=== PATIENT | female | born 1985 | race Caucasian/White ===

== ENCOUNTER 2022-10-10 20:34 | Emergency (ER) | payer OTHER ==
[~2022-10-10] VITALS: Ht 172.7 cm; Wt 110.5 kg
[2022-10-10 20:35] VITALS: BP 141/85; TEMP 97.8; O2SAT 100
[2022-10-10 21:29] LABS: APPEARANCE, URINE HAZY (CLEAR); BACTERIA, URINE AUTO 1+ (NEGATIVE); BILIRUBIN, URINE AUTO NEGATIVE (NEGATIVE); BLOOD, URINE BLOOD 1+ (NEGATIVE); COLOR, URINE AMBER (YELLOW); GLUCOSE, URINE (UA) AUTO NEGATIVE (NEGATIVE); KETONE, URINE AUTO NEGATIVE (NEGATIVE); LEUKOCYTE ESTERASE, URINE AUTO 1+ (NEGATIVE); MUCUS, URINE SMALL (NEGATIVE); NITRITE, URINE AUTO NEGATIVE (NEGATIVE); PROTEIN, URINE AUTO NEGATIVE (NEGATIVE); RBC, URINE AUTO 8 /HPF (0-3); SPECIFIC GRAVITY URINE AUTO 1.012 (1.002-1.035); SQUAMOUS EPITHELIAL CELL UR AU 1 /HPF (0-6); WBC, URINE AUTO 15 /HPF (0-3)
[2022-10-10 22:46] LABS: BASO # 0.1 10^3/uL (0.0-0.2); BASO % 0.6 % (0.0-1.0); EOS # 0.3 10^3/uL (0.0-0.5); EOS % 2.7 % (0.0-3.0); HEMATOCRIT 40.3 % (36.0-47.0); HEMOGLOBIN 13.2 g/dl (12.0-15.5); LYMPH # 2.6 10^3/uL (1.5-5.0); LYMPH % 23.6 % (24.0-44.0); MEAN CORPUSCULAR HEMOGLOBIN 28.4 pg (27.0-33.0); MEAN CORPUSCULAR HGB CONC 32.8 g/dl (32.0-36.5); MEAN CORPUSCULAR VOLUME 86.7 fl (80.0-96.0); MONO # 0.7 10^3/uL (0.0-0.8); MONO % 5.9 % (2.0-8.0); NEUTROPHILS # 7.4 10^3/uL (1.5-8.5); NEUTROPHILS % 66.9 % (36.0-66.0); PLATELET COUNT, AUTOMATED 378 10^3/uL (150-450); RED BLOOD COUNT 4.65 10^6/uL (4.00-5.40); WHITE BLOOD COUNT 11.1 10^3/uL (4.0-10.0)
[2022-10-10 23:06] LABS: BLOOD UREA NITROGEN 9 MG/DL (9-23); CALCIUM LEVEL 9.5 MG/DL (8.5-10.1); CARBON DIOXIDE LEVEL 29 MMOL/L (20-31); CHLORIDE LEVEL 102 MMOL/L (98-107); CREATININE FOR GFR 0.73 MG/DL (0.55-1.30); GLOMERULAR FILTRATION RATE > 60.0 (>60); GLUCOSE, FASTING 87 MG/DL (60-100); POTASSIUM SERUM 4.3 MMOL/L (3.5-5.1); SODIUM LEVEL 137 MMOL/L (136-145)
[2022-10-11] MEDS ORDERED: CIPROFLOXACIN 500MG TABLET PO ONE (01:35)
[2022-10-11] MEDS ORDERED: PHENAZOPYRIDINE 100 MG TAB PO ONE (01:35)
[2022-10-11] MEDS ORDERED: CIPR-249 PO (01:36)
[2022-10-11] MEDS ORDERED: PYRI1TAB5 PO (01:36)
== END 2022-10-11 01:47 | disposition home or self-care (01) ==
LOC: M ED 20:34
DX: N39.0 Urinary tract infection, site not specified (principal); D72.829 Elevated white blood cell count, unspecified; Z79.2 Long term (current) use of antibiotics; Z79.899 Other long term (current) drug therapy

== ENCOUNTER 2024-06-12 18:25 | Emergency (ER) | payer OTHER ==
[~2024-06-12] VITALS: Ht 172.7 cm; Wt 108.5 kg
[~2024-06-12 18:25] MED LIST: CIPR-249 PO; PYRI1TAB5 PO
[2024-06-12 18:27] VITALS: BP 132/66; TEMP 97.8; O2SAT 98
[2024-06-12] MEDS ORDERED: PHEN-239 (18:33)
[2024-06-12] MEDS ORDERED: METF-838 (18:33)
[2024-06-12] MEDS ORDERED: BUPR150T12 (18:33)
[2024-06-12] MEDS ORDERED: FLUO40CA (18:33)
[2024-06-12] MEDS ORDERED: IBUP-1022 PO (20:23)
== END 2024-06-12 20:34 | disposition home or self-care (01) ==
LOC: M ED 18:25
DX: S93.402A Sprain of unspecified ligament of left ankle, initial encounter (principal); W10.9XXA Fall (on) (from) unspecified stairs and steps, initial encounter; Y92.009 Unspecified place in unspecified non-institutional (private) residence as the place of occurrence of the external cause; Y93.89 Activity, other specified; Y99.9 Unspecified external cause status; Z79.4 Long term (current) use of insulin; Z79.899 Other long term (current) drug therapy